=== PATIENT | female | born 1955 | race Two or more races ===

== ENCOUNTER 2023-04-23 08:35 | Inpatient (IN) | payer MEDICARE, OTHER ==
[~2023-04-23] VITALS: Ht 160 cm; Wt 69.9 kg
[2023-04-23] MEDS ORDERED: GLUCAGON,HUMAN RECOMBINANT 1 MG VIAL ONE (08:45)
[2023-04-23] MEDS ORDERED: DEXTROSE 50%-WATER 25 GM/50 ML SYRINGE IVP ONE ×3 (08:51→09:15)
[2023-04-23] MEDS ORDERED: ACETAMINOPHEN 1000 MG/ISO-OSM 100 ML IV ONE (09:00)
[2023-04-23] MEDS ORDERED: GLUCAGON,HUMAN RECOMBINANT 1 MG VIAL IM ONE (09:00)
[2023-04-23] MEDS ORDERED: SODIUM CHLORIDE 0.9% 1,000 ML IV ONE ×2 (09:00)
[2023-04-23 09:09] LABS: BASOPHILS % (AUTO) 0.5 % (0.0-2.0); EOSINOPHILS % (AUTO) 0 % (1.0-6.0); HEMATOCRIT 30.1 % (36-46); HEMOGLOBIN 9.5 g/dL (12.0-16.0); LYMPHOCYTES # (AUTO) 0.6 K/uL (1.0-4.8); LYMPHOCYTES % (AUTO) 5.6 % (22.0-44.0); MEAN CORPUSCULAR HEMOGLOBIN 42.1 pg (26.0-34.0); MEAN CORPUSCULAR HGB CONC 31.7 G/dL (31.0-37.0); MEAN CORPUSCULAR VOLUME 133 fL (80-100); MONOCYTES # (AUTO) 0.6 K/uL (0.1-1.0); MONOCYTES % (AUTO) 5.3 % (2.0-9.0); NEUTROPHILS # (AUTO) 9.5 K/uL (1.8-7.7); PLATELET COUNT (AUTO) 121 K/uL (150-450); RED BLOOD CELL COUNT(AUTO) 2.26 MIL/uL (4.00-5.20); RED CELL DISTRIBUTION WIDTH 20.4 % (11.5-14.5)
[2023-04-23 09:10] LABS: NEUTROPHILS % (AUTO) 88.6 % (40.0-70.0)
[2023-04-23] MEDS ORDERED: ETOMIDATE 2 MG/ML 10 ML VIAL ONE (09:10)
[2023-04-23] MEDS ORDERED: VECURONIUM BROMIDE 10 MG/VIAL ONE (09:10)
[2023-04-23] MEDS ORDERED: VECURONIUM BROMIDE 10 MG/VIAL IVP ONE ×2 (09:30→10:30)
[2023-04-23] MEDS ORDERED: ETOMIDATE 2 MG/ML 10 ML VIAL IVP ONE (09:30)
[2023-04-23 10:16] LABS: AMMONIA 230 umol/L (11-32)
[2023-04-23] MEDS ORDERED: MIDAZOLAM HCL 2 MG/2 ML VIAL IVP ONE (10:30)
[2023-04-23 10:31] LABS: ALBUMIN 1.7 g/dL (3.4-5.0); ALKALINE PHOSPHATASE 117 U/L (46-116); ANION GAP 30 mmol/L (8-16); BILIRUBIN,TOTAL 8.8 mg/dL (0.1-1.0); CALCIUM, TOTAL 8.9 mg/dL (8.8-10.5); CHLORIDE 104 mmol/L (98-107); CREATINE KINASE, TOTAL ONLY 472 U/L (26-192); CREATININE 3.58 mg/dL (0.60-1.30); GLOMERULAR FILTR. RATE CALC 13 mL/min (>60); GLUCOSE,RANDOM 343 mg/dL (70-110); POTASSIUM 4.2 mmol/L (3.5-5.1); SODIUM SERUM 142 mmol/L (136-145); TOTAL PROTEIN, SERUM 4.6 g/dL (6.4-8.2)
[2023-04-23 10:35] LABS: CARBON DIOXIDE 8 mmol/L (22-29)
[2023-04-23 10:40] LABS: LACTIC ACID 16.5 mmol/L (0.4-2.0)
[2023-04-23 10:48] LABS: ASPARTATE AMINOTRANSFERASE 282 U/L (15-37)
[2023-04-23 11:02] LABS: INR 3.5 (0.9-1.1); PROTHROMBIN TIME 34.3 SEC (9.4-11.6)
[2023-04-23] MEDS ORDERED: CefTRIAXone 1 GM/DEXTROSE 50 ML IV ONE (11:15)
[2023-04-23 11:25] LABS: ABG BASE EXCESS -18.5 mmol/L (-2.0-3.0); ABG HCO3 11.3 mmol/L (22.0-26.0); ABG METHEMOGLOBIN 0.7 % (0.0-1.5); ABG OXYGEN CONTENT 12.7 mL/dL (15.0-23.0); ABG OXYGEN SATURATION 99.7 % (95.0-98.0); ABG PCO2 30 mmHg (35-45); ABG TOTAL HEMOGLOBIN 8.5 G/dL (12.0-18.0); PO2, ARTERIAL BG 321.2 mmHg (79.0-87.0); SOURCE, BLOOD GAS ARTERIAL; TEMPERATURE, FAHRENHEIT, BG 100.2 FAHREN (96.0-98.6)
[2023-04-23 11:26] LABS: ABG A-A DIFF O2 359.9 mmHg (10-20.0); ABG PH 7.156 (7.35-7.450); O2 DEVICE,BLOOD GAS VENTILATOR (ROOM AIR); SITE, BLOOD GAS RT BRACHIAL
[2023-04-23 11:27] LABS: PEEP,BG 5 cm H2O; SPONTANEOUS VT, BG 384 ml; VT, ABG 400 ml
[2023-04-23] MEDS ORDERED: LACTULOSE 200 GM/300 ML RECTAL SOLUTION PR ONE (11:30)
[2023-04-23 11:35] LABS: ALANINE AMINOTRANSFERASE 53 U/L (12-78)
[2023-04-23] MEDS ORDERED: SODIUM BICARBONATE [ADULT] 8.4% 50 MEQ/50 ML SYRINGE IVP ONE (11:45)
[2023-04-23] MEDS ORDERED: SODIUM CHLORIDE 0.9% 500 ML IV ONE (14:27)
[2023-04-23] MEDS ORDERED: PROPOFOL 1000 MG/ISO-OSM 100 ML ONE (14:27)
[2023-04-23 14:42] LABS: APPEARANCE,URINE TURBID (CLEAR); GLUCOSE, URINE (UA) NEGATIVE (NEGATIVE); KETONES,URINE TRACE mg/dL (NEGATIVE); LEUKOCYTE ESTERASE ,URINE LARGE (NEGATIVE); NITRATE,URINE NEGATIVE (NEGATIVE); OCCULT BLOOD,URINE LARGE (NEGATIVE); PROTEIN,URINE 100-200,SEE CONFIRM mg/dL (NEGATIVE); SPECIFIC GRAVITIY, URINE 1.017 (1.003-1.030)
[2023-04-23 14:47] LABS: CREATININE,URINE RANDOM 106.1 mg/dL (30.0-125.0)
[2023-04-23 14:49] LABS: AMPHET/METH SCREEN,URINE NEGATIVE (NEGATIVE); BARBITURATE SCREEN, URINE NEGATIVE (NEGATIVE); BENZODIAZEPINES SCREEN,URINE NEGATIVE (NEGATIVE); CANNABINOID SCREEN,URINE NEGATIVE (NEGATIVE); COCAINE SCREEN,URINE NEGATIVE (NEGATIVE); METHADONE SCREEN, URINE NEGATIVE (NEGATIVE); OPIATE SCREEN,URINE NEGATIVE (NEGATIVE); PHENCYCLIDINE SCREEN,URINE NEGATIVE (NEGATIVE)
[2023-04-23 14:50] LABS: BILIRUBIN,URINE SMALL (NEGATIVE)
[2023-04-23 15:00] LABS: SULFOSALICYLIC ACID,URINE 2+ (Negative)
[2023-04-23 15:01] LABS: BACTERIA,URINE Many /HPF (None Seen); SQUAMOUS EPITHELIAL CELL,UR Few /LPF (None Seen)
[2023-04-23] MEDS ORDERED: DOPamine 400MG/D5W[STANDARD] 250 ML IV ONE (15:15)
[2023-04-23] MEDS ORDERED: PROPOFOL 1000 MG/ISO-OSM 100 ML IV PRN (15:30)
[2023-04-23 15:56] LABS: CALCIUM, TOTAL 8.7 mg/dL (8.8-10.5); CREATININE 3.15 mg/dL (0.60-1.30); POTASSIUM 3.8 mmol/L (3.5-5.1)
[2023-04-23] MEDS: DOPamine 400MG/D5W[STANDARD] 250 ML IV PRN ×2 (16:09→23:48)
[2023-04-23] MEDS ORDERED: FentaNYL CIT 1000MCG/0.9% NACL 100 ML IV PRN (19:45)
[2023-04-23] MEDS ORDERED: DEXTROSE 5%-0.45% SODIUM CHL 1,000 ML IV ONE (19:45)
[2023-04-23 23:41] LABS: COVID AG,FIA SOURCE NASAL SWAB
[2023-04-24] VITALS: BP 114/53
[2023-04-24 00:21] LABS: GLUCOSE,POINT OF CARE 109 MG/DL (70-110)
[2023-04-24] MEDS ORDERED: MORPHINE SULFATE 2 MG/ML SYRINGE IVP PRN (00:30)
[2023-04-24] MEDS ORDERED: HYDROCODONE/ACETAMINOPHEN 5-325 MG TABLET PO PRN (00:30)
[2023-04-24] MEDS ORDERED: MAGNESIUM HYDROXIDE SUSPENSION 30 ML UDCUP PO PRN (00:30)
[2023-04-24] MEDS ORDERED: ONDANSETRON HCL 4 MG/2 ML VIAL IVP PRN (00:30)
[2023-04-24] MEDS ORDERED: BISACODYL 10 MG RECTAL RECTAL SUPPOSITORY PR PRN (00:30)
[2023-04-24] MEDS ORDERED: IPRATROPIUM BROMIDE 0.5 MG/2.5 ML NEB SOLUTION NEB PRN (00:30)
[2023-04-24] MEDS ORDERED: ZOLPIDEM TARTRATE 5 MG TABLET PO PRN (00:30)
[2023-04-24] MEDS ORDERED: ALBUTEROL SULFATE 2.5 MG/0.5 ML NEB SOLUTION NEB PRN (00:30)
[2023-04-24] MEDS ORDERED: ACETAMINOPHEN 325 MG TABLET PO PRN (00:30)
[2023-04-24 04:00] VITALS: BP 96/74
[2023-04-24] MEDS: DOPamine 400MG/D5W[STANDARD] 250 ML IV PRN ×2 (06:26→09:36)
[2023-04-24 08:00] VITALS: BP 80/61
[2023-04-24] MEDS ORDERED: HEPARIN SODIUM,PORCINE 5,000 UNITS/ML VIAL SQ SCH (08:00)
[2023-04-24] MEDS ORDERED: DOCUSATE SODIUM 100 MG CAPSULE PO SCH (09:00)
[2023-04-24] MEDS ORDERED: PANTOPRAZOLE SODIUM 40 MG/VIAL IVP SCH (09:00)
[2023-04-24 12:00] VITALS: BP 57/34
[2023-04-24] MEDS: CefTRIAXone 1 GM/DEXTROSE 50 ML IV SCH ×2 (12:05)
[2023-04-24] MEDS ORDERED: SODIUM CHLORIDE 0.9% 250 ML IV ONE (12:09)
[2023-04-24] MEDS ORDERED: NOREPINEPHRINE 8 MG/D5%-WATER 250 ML IV PRN (14:15)
== END 2023-04-24 17:45 | DRG 871 ==
LOC: EMS 08:37 → ICU 23:08
PROVIDERS: ADMIT Hospitalist; ATTEND Hospitalist
PROC: 5A1935Z Respiratory Ventilation, Less than 24 Consecutive Hours (ICD-10-PCS; principal; 2023-04-23)
PROC: 0BH17EZ Insertion of Endotracheal Airway into Trachea, Via Natural or Artificial Opening (ICD-10-PCS; 2023-04-23)
DX: A41.9 Sepsis, unspecified organism (principal); J96.00 Acute respiratory failure, unspecified whether with hypoxia or hypercapnia; I85.10 Secondary esophageal varices without bleeding; D68.9 Coagulation defect, unspecified; K76.6 Portal hypertension; N17.9 Acute kidney failure, unspecified; E87.20 Acidosis, unspecified; N39.0 Urinary tract infection, site not specified; Z16.12 Extended spectrum beta lactamase (ESBL) resistance; Z51.5 Encounter for palliative care; Z20.822 Contact with and (suspected) exposure to COVID-19; Z66 Do not resuscitate; K76.82 Hepatic encephalopathy; K70.31 Alcoholic cirrhosis of liver with ascites; B96.20 Unspecified Escherichia coli [E. coli] as the cause of diseases classified elsewhere; D63.1 Anemia in chronic kidney disease; I12.9 Hypertensive chronic kidney disease with stage 1 through stage 4 chronic kidney disease, or unspecified chronic kidney disease; D69.6 Thrombocytopenia, unspecified; E16.2 Hypoglycemia, unspecified; D73.1 Hypersplenism; E88.09 Other disorders of plasma-protein metabolism, not elsewhere classified; K21.9 Gastro-esophageal reflux disease without esophagitis; F32.A Depression, unspecified; F10.20 Alcohol dependence, uncomplicated; K72.10 Chronic hepatic failure without coma; N18.9 Chronic kidney disease, unspecified
CPT/HCPCS: 36600; 51702; 70450; 71045; 71250; 72192; 74150; 76770; 80048; 80053; 80307; 81001; 81002; 82140; 82550; 82570; 82805; 82962; 83605; 84156; 84300; 84484; 84540; 85025; 85610; 85730; 87040; 87081; 87086; 87186; 93005; 94002; 94003; 99291; C9113; G0378; J0131; J0696; J1265; J1610; J1644; J2250; J2270; J2704; J3490; J7040; J7050; Q9967; 36415-L1; 36415-TC